=== PATIENT | male | born 1935 | race Caucasian/White ===

== ENCOUNTER 2018-11-02 10:20 | Inpatient (IN) | payer OTHER ==
--- NOTE | 2018-11-02 12:38 | PDOC ---
History of Present Illness - General Chief Complaint: Psychiatric Stated Complaint: Agitated Time Seen by Provider: 11/02/18 12:17 - History of Present Illness Initial Comments: Hx provided with assistance of patients daughter and . 83y/o M hx of alzheimers, Parkinson's disease, BPH and HTN presenting to the ED with approx. a week of increased agitation and combativeness. He has equally had increased urinary frequency and foul smelling urine for the same period of time and ongoing cough for about 3 weeks. per he has cough producing clear sputum, headache and constipation. She denies hematuria, fevers, chills, nausea , vomiting, diarrhea 11/02/18 15:56 Past History - Past Medical History Allergies/Adverse Reactions: Allergies Allergy/AdvReac Type Severity Reaction Status Date / Time Penicillins Allergy Verified 11/02/18 10:29 Home Medications: Ambulatory Orders Cholecalciferol (Vitamin D3) [Vitamin D3] 3,000 unit PO DAILY 11/02/18 Folic Acid 1 mg PO DAILY 11/02/18 Lisinopril/Hydrochlorothiazide [Lisinopril-Hctz 20-12.5 mg Tab] 1 each PO DAILY 11/02/18 Melatonin [Melatin] 3 mg PO DAILY 11/02/18 Memantine HCl [Memantine HCl ER] 21 mg PO DAILY 11/02/18 Nifedipine [Nifedipine ER] 60 mg PO DAILY 11/02/18 Tamsulosin HCl 0.4 mg PO DAILY 11/02/18 COPD: No HTN: Yes Other medical history: alzeihmer's/parkinson's - Surgical History Gastric Stapling: No - Immunization History Immunization Up to Date: No - Suicide/Smoking/Psychosocial Hx Smoking History: Never smoked Have you smoked in the past 12 months: No Information on smoking cessation initiated: No Hx Alcohol Use: No Drug/Substance Use Hx: No *Physical Exam - Vital Signs Last Vital Signs Temp Pulse Resp BP Pulse Ox 98.4 F 81 16 105/54 L 96 11/02/18 10:30 11/02/18 10:30 11/02/18 10:30 11/02/18 10:30 11/02/18 10:30 - Physical Exam General Appearance: Yes: Nourished, Appropriately Dressed. No: Apparent Distress HEENT: positive: Normal Voice. negative: Scleral Icterus (R), Scleral Icterus ( L) Neck: positive: Trachea midline, Supple. negative: Tender Respiratory/Chest: positive: Rhonchi (in lung bases). negative: Chest Tender, Respiratory Distress, Accessory Muscle Use, Labored Respiration Cardiovascular: positive: Regular Rhythm, Regular Rate, S1, S2. negative: JVD Vascular Pulses: Dorsalis-Pedis (R): 2+, Doralis-Pedis (L): 2+ Gastrointestinal/Abdominal: positive: Normal Bowel Sounds, Protuberent. negative: Pulsatile Mass, Guarding, Rebound, Tenderness Musculoskeletal: positive: Normal Inspection. negative: CVA Tenderness Neurologic: positive: Normal Mood/Affect, Other (pill rolling tremor on the right at rest. 5/5 strength in upper extremities. 4 lower extremities. AO x1). negative: Normal Response, Facial Droop ED Treatment Course - LABORATORY CBC & Chemistry Diagram: 11/02/18 13:15 11/02/18 13:15 Medical Decision Making - Medical Decision Making 11/02/18 13:22 cbc, cmp, ua, urine culture, cxr, head ct w/o contrast.EKG 11/02/18 15:05 EKG: normal sinus rhythm, left bundle branch block, abnormal EKG CT head moderate volume loss and ventricular dilatation periventricular chronic microvascular ischemic chagnes no mass lesion/ gross infarct/hemorrhage calvarium intact CXR clear lungs,sclerotic knob, prominent left hilum and normal heart acute chest process ot seen . degenerative changes. correlation recommended 11/02/18 15:55 UA, cbc,cmp unremarkable Dr. Singh contacted about plans for patient. 11/02/18 16:[address] Singh, she sent the patient here for evaluation for his increased agitation and agressive behavior and wants him to be admitted to get a psychiatric evaluation *DC/Admit/Observation/Transfer Diagnosis at time of Disposition: Parkinson disease Dementia Qualifiers: Dementia type: Alzheimer's disease Alzheimer's disease onset: unspecified onset Dementia behavioral disturbance: with behavioral disturbance Qualified Code(s): G30.9 - Alzheimer's disease, unspecified; F02.81 - Dementia in other diseases classified elsewhere with behavioral disturbance - Discharge Dispostion Condition at time of disposition: Stable - Referrals - Patient Instructions - Post Discharge Activity
[2018-11-02 13:22] LABS: BASO % 0.8 % (0-2.0); EOS % 2.1 % (0-4.5); HEMATOCRIT 36.9 % (35.4-49); HEMOGLOBIN 12.4 GM/dL (11.7-16.9); LYMPH % 17.3 % (8-40); MCH 31.5 pg (25.7-33.7); MCHC 33.5 g/dl (32.0-35.9); MEAN CELL VOLUME 93.9 fl (80-96); MEAN PLT VOLUME 8.4 fl (7.5-11.1); MONO % 8.7 % (3.8-10.2); NEUT % 71.1 % (42.8-82.8); PLATELET COUNT 211 K/MM3 (134-434); RBC 3.93 M/mm3 (4.00-5.60); RDW 13.4 % (11.9-15.9); WHITE BLOOD COUNT 7.2 K/mm3 (4.0-10.0)
[2018-11-02 13:50] LABS: ALBUMIN 3.5 g/dl (3.4-5.0); BILIRUBIN,TOTAL 0.6 mg/dL (0.2-1); BLOOD UREA NITROGEN 18.6 mg/dL (7-18); CALCIUM 8.6 mg/dL (8.5-10.1); CREATININE 0.9 mg/dL (0.55-1.3); POTASSIUM 3.9 mmol/L (3.5-5.1); TOT PROT 6.3 g/dl (6.4-8.2)
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
--- NOTE | 2018-11-02 14:28 | EKG ---
Test Reason : Blood Pressure : / mmHG Vent. Rate : 081 BPM Atrial Rate : 081 BPM P-R Int : 136 ms QRS Dur : 174 ms QT Int : 436 ms P-R-T Axes : 029 041 -12 degrees QTc Int : 506 ms NORMAL SINUS RHYTHM LEFT BUNDLE BRANCH BLOCK ABNORMAL ECG NO PREVIOUS ECGS AVAILABLE Confirmed by CLEVELAND SMALLWOOD MD ([id number]) on 11/02/2018 2:28:25 PM Referred By: Confirmed By:CLEVELAND SMALLWOOD MD
[2018-11-02 15:28] LABS: PH,URINE 5.5 (5.0-8.0); URINE APPEARANCE CLEAR; URINE BILIRUBIN NEGATIVE (NEGATIVE); URINE COLOR YELLOW; URINE GLUCOSE (UA) NEGATIVE (NEGATIVE); URINE KETONE NEGATIVE (NEGATIVE); URINE LEUK ESTERASE NEGATIVE (NEGATIVE); URINE NITRITE NEGATIVE (NEGATIVE); URINE PROTEIN NEGATIVE (NEGATIVE); URINE UROBILINOGEN 0.2 mg/dL (0.2-1.0)
[2018-11-02] MEDS ORDERED: ACETAMINOPHEN 325 MG TABLET (FP) PO PRN (16:42)
[2018-11-02] MEDS ORDERED: DIVALPROEX SODIUM 125 MG TABLET E.C. ONE (17:54)
[2018-11-02] MEDS: DIVALPROEX SODIUM 125 MG SPRINKLE CAPS PO SCH (17:55)
[2018-11-02] MEDS ORDERED: OLANZapine 5 MG TABLET PO ONE (17:59)
[2018-11-02] MEDS ORDERED: ACETAMINOPHEN 325 MG TABLET (FP) ONE (19:21)
[2018-11-02] MEDS: MIRTAZAPINE 15 MG TABLET (FP) PO SCH (21:51)
[2018-11-02] MEDS: HALOPERIDOL LACTATE 5 MG/ML IM PRN (21:52)
[2018-11-02] MEDS: MEMANTINE HCL 10 MG TABLET (FP) PO SCH (21:52)
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
[2018-11-03 00:47] VITALS: BMI 26.4
[2018-11-03 07:33] LABS: HEMATOCRIT 42.4 % (35.4-49); HEMOGLOBIN 14.1 GM/dL (11.7-16.9); MCH 31.5 pg (25.7-33.7); MCHC 33.3 g/dl (32.0-35.9); MEAN CELL VOLUME 94.4 fl (80-96); MEAN PLT VOLUME 8.8 fl (7.5-11.1); PLATELET COUNT 227 K/MM3 (134-434); RBC 4.49 M/mm3 (4.00-5.60); RDW 13.6 % (11.9-15.9); WHITE BLOOD COUNT 6.5 K/mm3 (4.0-10.0)
[2018-11-03 08:29] LABS: CALCIUM 8.9 mg/dL (8.5-10.1); CREATININE 0.7 mg/dL (0.55-1.3); MAGNESIUM 2.4 mg/dL (1.8-2.4); POTASSIUM 3.9 mmol/L (3.5-5.1)
[2018-11-03] MEDS ORDERED: MEMANTINE HCL 21 MG PO SCH (10:00)
[2018-11-03] MEDS ORDERED: PATIENT'S OWN MEDICATION (NON-FORMULARY) (Lisinopril/Hydrochlorothiazide [Lisinopril-Hctz PO SCH (10:00)
[2018-11-03] MEDS ORDERED: PT OWN MED DRAWER 7, Y5N ONE ×2 (11:32→21:03)
[2018-11-03] MEDS: CHOLECALCIFEROL (VIT D3) 1,000 UNIT (25 MCG) TABLET PO SCH (11:33)
[2018-11-03] MEDS: HYDROCHLOROTHIAZIDE 12.5 MG CAPSULE (FP) PO SCH (11:34)
[2018-11-03] MEDS: TAMSULOSIN HCL 0.4 MG CAP PO SCH (11:34)
[2018-11-03] MEDS: FOLIC ACID 1 MG TABLET (FP) PO SCH (11:34)
[2018-11-03] MEDS: NIFEdipine E.R 60 MG TABLET (UD) PO SCH (11:34)
[2018-11-03] MEDS: MEMANTINE HCL 10 MG TABLET (FP) PO SCH ×2 (11:34→22:13)
[2018-11-03] MEDS: LISINOPRIL 20 MG TABLET (FP) PO SCH (11:34)
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
[2018-11-03] MEDS: DIVALPROEX SODIUM 125 MG SPRINKLE CAPS PO SCH (22:13)
[2018-11-03] MEDS: MIRTAZAPINE 15 MG TABLET (FP) PO SCH (22:15)
[2018-11-03] MEDS: CARBIDOPA/LEVODOPA 25/100 TABLET (FP) PO SCH (22:22)
--- NOTE | 2018-11-04 00:25 | PN ---
Progress Note (short form) - Note Progress Note: patient seen and examined in room confused / noted tremor right hand ( has had this for yrs ) Vital Signs Period Temp Pulse Resp BP Sys/Rodríguez Pulse Ox Last 24 Hr 98.2 F-98.5 F 80-88 18-20 135-150/73-81 98-98 neck no nodes heart s1/S2 reg lungs clear bilat abd soft non tender ext no edema CBC, BMP 11/03/18 06:39 11/03/18 06:39 Microbiology 11/02/18 15:00 Urine - Urine Clean Catch Urine Culture - Final NO GROWTH OBTAINED Active Medications Acetaminophen (Tylenol -) 650 mg PO Q4H PRN PRN Reason: PAIN LEVEL 1-5 Last Admin: 11/02/18 19:21 Dose: 650 mg Carbidopa/Levodopa (Sinemet 25/100 -) 1 each PO TID [facility] Carbidopa/Levodopa (Sinemet 25/100 -) 0.5 each PO TID TERA Stop: 11/06/18 21:59 Last Admin: 11/03/18 22:22 Dose: 0.5 each Cholecalciferol (Vitamin D3 -) 3,000 unit PO DAILY [facility] Last Admin: 11/03/18 11:33 Dose: 3,000 unit Divalproex Sodium (Depakote Sprinkle Caps -) 125 mg PO BID [facility] Last Admin: 11/03/18 22:13 Dose: 125 mg Folic Acid (Folic Acid -) 1 mg PO DAILY [facility] Last Admin: 11/03/18 11:34 Dose: 1 mg Haloperidol (Haldol Injection (Fast Acting) -) 2 mg IM Q4H PRN PRN Reason: AGITATION Last Admin: 11/02/18 21:52 Dose: 2 mg Hydrochlorothiazide (Hctz -) 12.5 mg PO DAILY [facility] Last Admin: 11/03/18 11:34 Dose: 12.5 mg Lisinopril (Prinivil) 20 mg PO DAILY [facility] Last Admin: 11/03/18 11:34 Dose: 20 mg Memantine (Namenda -) 10 mg PO BID [facility] Last Admin: 11/03/18 22:13 Dose: 10 mg Mirtazapine (Remeron -) 7.5 mg PO HS [facility] Last Admin: 11/03/18 22:15 Dose: 7.5 mg Nifedipine (Procardia Xl -) 60 mg PO DAILY [facility] Last Admin: 11/03/18 11:34 Dose: 60 mg Tamsulosin HCl (Flomax -) 0.4 mg PO DAILY@0830 [facility] Last Admin: 11/03/18 11:34 Dose: 0.4 mg ASSMT/ PLAN # Dementia behavior changes -- paranoid / aggressive outburst depakote mirtazipine q hs # tremors right hand \? Parkinson's ? appreciate neuro input # HTN continue meds will discuss with family the need for STR and may need LTC Problem List - Problems (1) Dementia Code(s): F03.90 - UNSPECIFIED DEMENTIA WITHOUT BEHAVIORAL DISTURBANCE Qualifiers: Dementia type: Alzheimer's disease Alzheimer's disease onset: unspecified onset Dementia behavioral disturbance: with behavioral disturbance Qualified Code(s): G30.9 - Alzheimer's disease, unspecified; F02.81 - Dementia in other diseases classified elsewhere with behavioral disturbance (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
[2018-11-04] MEDS: CARBIDOPA/LEVODOPA 25/100 TABLET (FP) PO SCH ×3 (05:15→22:07)
--- NOTE | 2018-11-04 10:51 | PN ---
Progress Note (short form) - Note Progress Note: patient seen and examined in room confused / noted tremor right hand ( has had this for yrs ) PT reports assist of 2 people difficult to re direct / does not follow commands Vital Signs Period Temp Pulse Resp BP Sys/Rodríguez Pulse Ox Last 24 Hr 98.2 F-98.5 F 80-88 18-20 135-150/73-81 98-98 neck no nodes heart s1/S2 reg lungs clear bilat abd soft non tender ext no edema CBC, BMP 11/03/18 06:39 11/03/18 06:39 Microbiology 11/02/18 15:00 Urine - Urine Clean Catch Urine Culture - Final NO GROWTH OBTAINED Active Medications Acetaminophen (Tylenol -) 650 mg PO Q4H PRN PRN Reason: PAIN LEVEL 1-5 Last Admin: 11/02/18 19:21 Dose: 650 mg Carbidopa/Levodopa (Sinemet 25/100 -) 1 each PO TID [facility] Carbidopa/Levodopa (Sinemet 25/100 -) 0.5 each PO TID [facility] Stop: 11/06/18 21:59 Last Admin: 11/04/18 05:15 Dose: 0.5 each Cholecalciferol (Vitamin D3 -) 3,000 unit PO DAILY [facility] Last Admin: 11/03/18 11:33 Dose: 3,000 unit Divalproex Sodium (Depakote Sprinkle Caps -) 125 mg PO BID [facility] Last Admin: 11/03/18 22:13 Dose: 125 mg Folic Acid (Folic Acid -) 1 mg PO DAILY [facility] Last Admin: 11/03/18 11:34 Dose: 1 mg Haloperidol (Haldol Injection (Fast Acting) -) 2 mg IM Q4H PRN PRN Reason: AGITATION Last Admin: 11/02/18 21:52 Dose: 2 mg Hydrochlorothiazide (Hctz -) 12.5 mg PO DAILY [facility] Last Admin: 11/03/18 11:34 Dose: 12.5 mg Lisinopril (Prinivil) 20 mg PO DAILY [facility] Last Admin: 11/03/18 11:34 Dose: 20 mg Memantine (Namenda -) 10 mg PO BID [facility] Last Admin: 11/03/18 22:13 Dose: 10 mg Mirtazapine (Remeron -) 7.5 mg PO HS [facility] Last Admin: 11/03/18 22:15 Dose: 7.5 mg Nifedipine (Procardia Xl -) 60 mg PO DAILY [facility] Last Admin: 11/03/18 11:34 Dose: 60 mg Tamsulosin HCl (Flomax -) 0.4 mg PO DAILY@0830 [facility] Last Admin: 11/03/18 11:34 Dose: 0.4 mg ASSMT/ PLAN # Dementia behavior changes -- paranoid / aggressive outburst depakote incresed to BID mirtazipine q hs # tremors right hand / parkinson's unsteady gait trial of sinemet appreciate neurology consult # HTN continue meds will need STR and may need LTC family agrees arrangements in progress Problem List - Problems (1) Dementia Code(s): F03.90 - UNSPECIFIED DEMENTIA WITHOUT BEHAVIORAL DISTURBANCE Qualifiers: Dementia type: Alzheimer's disease Alzheimer's disease onset: unspecified onset Dementia behavioral disturbance: with behavioral disturbance Qualified Code(s): G30.9 - Alzheimer's disease, unspecified; F02.81 - Dementia in other diseases classified elsewhere with behavioral disturbance (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
[2018-11-04] MEDS: CHOLECALCIFEROL (VIT D3) 1,000 UNIT (25 MCG) TABLET PO SCH (11:29)
[2018-11-04] MEDS: TAMSULOSIN HCL 0.4 MG CAP PO SCH (11:29)
[2018-11-04] MEDS: NIFEdipine E.R 60 MG TABLET (UD) PO SCH (11:29)
[2018-11-04] MEDS: HYDROCHLOROTHIAZIDE 12.5 MG CAPSULE (FP) PO SCH (11:29)
[2018-11-04] MEDS: LISINOPRIL 20 MG TABLET (FP) PO SCH (11:30)
[2018-11-04] MEDS: MEMANTINE HCL 10 MG TABLET (FP) PO SCH ×2 (11:31→22:06)
[2018-11-04] MEDS: DIVALPROEX SODIUM 125 MG SPRINKLE CAPS PO SCH ×2 (11:31→22:06)
[2018-11-04] MEDS: FOLIC ACID 1 MG TABLET (FP) PO SCH (11:31)
[2018-11-04] MEDS ORDERED: PT OWN MED DRAWER 7, Y5N ONE (20:28)
[2018-11-04] MEDS: MIRTAZAPINE 15 MG TABLET (FP) PO SCH (22:06)
[2018-11-05] MEDS: CARBIDOPA/LEVODOPA 25/100 TABLET (FP) PO SCH ×3 (06:15→21:53)
[2018-11-05 07:46] LABS: BASO % 0.5 % (0-2.0); EOS % 3.9 % (0-4.5); HEMATOCRIT 42.9 % (35.4-49); HEMOGLOBIN 14.5 GM/dL (11.7-16.9); LYMPH % 13.4 % (8-40); MCHC 33.9 g/dl (32.0-35.9); MEAN CELL VOLUME 94.4 fl (80-96); MEAN PLT VOLUME 8.7 fl (7.5-11.1); MONO % 11.8 % (3.8-10.2); NEUT % 70.4 % (42.8-82.8); PLATELET COUNT 212 K/MM3 (134-434); RBC 4.54 M/mm3 (4.00-5.60); RDW 13.7 % (11.9-15.9); WHITE BLOOD COUNT 10.2 K/mm3 (4.0-10.0)
[2018-11-05 08:13] LABS: ALBUMIN 3.4 g/dl (3.4-5.0); BILIRUBIN,TOTAL 0.6 mg/dL (0.2-1); CALCIUM 8.7 mg/dL (8.5-10.1); CREATININE 1.3 mg/dL (0.55-1.3); TOT PROT 6.4 g/dl (6.4-8.2)
--- NOTE | 2018-11-05 09:29 | DS ---
Physical Examination Vital Signs: Vital Signs Temperature 97.8 F 11/05/18 06:30 Pulse Rate 76 11/05/18 06:30 Respiratory Rate 20 11/05/18 06:30 Blood Pressure 144/76 11/05/18 06:30 O2 Sat by Pulse Oximetry (%) 96 11/04/18 21:00 Constitutional: Yes: Well Nourished, No Distress Eyes: Yes: Conjunctiva Clear, EOM Intact HENT: Yes: Atraumatic, Normocephalic Neck: Yes: Supple, Trachea Midline Cardiovascular: Yes: Regular Rate and Rhythm Respiratory: Yes: Regular, CTA Bilaterally Gastrointestinal: Yes: Normal Bowel Sounds, Soft ...Rectal Exam: Yes: Deferred Renal/: Yes: WNL Breast(s): Yes: WNL Musculoskeletal: Yes: WNL Extremities: Yes: WNL Edema: No Peripheral Pulses WNL: Yes Integumentary: Yes: WNL Neurological: Yes: Alert, Confusion, Tremors ...Motor Strength: RUE (Resting tremors) Psychiatric: Yes: Alert Labs: CBC, BMP 11/05/18 06:40 11/05/18 06:40 Discharge Summary Reason For Visit: DEMENTIA PARKINSON DISEASE Current Active Problems BPH associated with nocturia (Acute) Dementia (Acute) Dementia in Alzheimer's disease with early onset with behavioral disturbance ( Acute) HTN (hypertension) (Acute) Parkinson disease (Acute) Hospital Course: 83 y/o male admitted for increased confusion and agitation. PMHx includes Dementia, BPH, HTN and Parkinson's. Unintentional tremors in RT UE present for years. Seen by Neurology. Carbidopa started for Parkinson's. Depakote sprinkles increased to control behavior. Plan To [facility] to [facility] for rehab. LTC may be indicated. Condition: Stable - Instructions Diet, Activity, Other Instructions: 2 gm Na diet Disposition: [facility] - Home Medications Comprehensive Discharge Medication List: Ambulatory Orders Cholecalciferol (Vitamin D3) [Vitamin D3] 3,000 unit PO DAILY 11/02/18 Folic Acid 1 mg PO DAILY 11/02/18 Lisinopril/Hydrochlorothiazide [Lisinopril-Hctz 20-12.5 mg Tab] 1 each PO DAILY 11/02/18 Melatonin [Melatin] 3 mg PO DAILY 11/02/18 Memantine HCl [Memantine HCl ER] 21 mg PO DAILY 11/02/18 Nifedipine [Nifedipine ER] 60 mg PO DAILY 11/02/18 Tamsulosin HCl 0.4 mg PO DAILY 11/02/18
[2018-11-05] MEDS: LISINOPRIL 20 MG TABLET (FP) PO SCH (10:11)
[2018-11-05] MEDS: HYDROCHLOROTHIAZIDE 12.5 MG CAPSULE (FP) PO SCH (10:11)
[2018-11-05] MEDS: NIFEdipine E.R 60 MG TABLET (UD) PO SCH (10:11)
[2018-11-05] MEDS: FOLIC ACID 1 MG TABLET (FP) PO SCH (10:11)
[2018-11-05] MEDS: CHOLECALCIFEROL (VIT D3) 1,000 UNIT (25 MCG) TABLET PO SCH (10:11)
[2018-11-05] MEDS: TAMSULOSIN HCL 0.4 MG CAP PO SCH (10:11)
[2018-11-05] MEDS: DIVALPROEX SODIUM 125 MG SPRINKLE CAPS PO SCH ×2 (10:12→21:51)
[2018-11-05] MEDS: MEMANTINE HCL 10 MG TABLET (FP) PO SCH ×2 (10:13→21:53)
[2018-11-05] MEDS: MIRTAZAPINE 15 MG TABLET (FP) PO SCH (21:51)
[2018-11-06] MEDS: CARBIDOPA/LEVODOPA 25/100 TABLET (FP) PO SCH ×4 (06:38→21:46)
[2018-11-06] MEDS: DIVALPROEX SODIUM 125 MG SPRINKLE CAPS PO SCH ×3 (10:19→21:46)
[2018-11-06] MEDS ORDERED: PT OWN MED DRAWER 7, Y5N ONE (10:19)
[2018-11-06] MEDS: TAMSULOSIN HCL 0.4 MG CAP PO SCH (11:19)
[2018-11-06] MEDS: MEMANTINE HCL 10 MG TABLET (FP) PO SCH ×2 (11:20→21:45)
[2018-11-06] MEDS: CHOLECALCIFEROL (VIT D3) 1,000 UNIT (25 MCG) TABLET PO SCH (11:20)
[2018-11-06] MEDS: FOLIC ACID 1 MG TABLET (FP) PO SCH (11:20)
[2018-11-06] MEDS: NIFEdipine E.R 60 MG TABLET (UD) PO SCH (11:20)
[2018-11-06] MEDS: HYDROCHLOROTHIAZIDE 12.5 MG CAPSULE (FP) PO SCH (11:21)
[2018-11-06] MEDS: LISINOPRIL 20 MG TABLET (FP) PO SCH (11:21)
--- NOTE | 2018-11-06 13:24 | PN ---
Progress Note (short form) - Note Progress Note: 83 y/o male found lying in bed. Appears comfortable. No c/o pain or discomfort. Vital Signs Period Temp Pulse Resp BP Sys/Rodríguez Pulse Ox Last 24 Hr 98.5 F-98.7 F 69-85 18-20 115-154/49-93 96-96 CBC, BMP 11/05/18 06:40 11/05/18 06:40 HEENT- NL Neck-supple Lungs- CTAb Heart- S1/S2 Abd- soft, nt Ext- No LE edema Active Medications Acetaminophen (Tylenol -) 650 mg PO Q4H PRN PRN Reason: PAIN LEVEL 1-5 Last Admin: 11/02/18 19:21 Dose: 650 mg Carbidopa/Levodopa (Sinemet 25/100 -) 1 each PO TID [facility] Carbidopa/Levodopa (Sinemet 25/100 -) 0.5 each PO TID [facility] Stop: 11/06/18 21:59 Last Admin: 11/06/18 06:47 Dose: Not Given Cholecalciferol (Vitamin D3 -) 3,000 unit PO DAILY [facility] Last Admin: 11/06/18 11:20 Dose: 3,000 unit Divalproex Sodium (Depakote Sprinkle Caps -) 125 mg PO BID [facility] Last Admin: 11/06/18 10:19 Dose: 125 mg Folic Acid (Folic Acid -) 1 mg PO DAILY [facility] Last Admin: 11/06/18 11:20 Dose: 1 mg Haloperidol (Haldol Injection (Fast Acting) -) 2 mg IM Q4H PRN PRN Reason: AGITATION Last Admin: 11/02/18 21:52 Dose: 2 mg Hydrochlorothiazide (Hctz -) 12.5 mg PO DAILY [facility] Last Admin: 11/06/18 11:21 Dose: 12.5 mg Lisinopril (Prinivil) 20 mg PO DAILY [facility] Last Admin: 11/06/18 11:21 Dose: 20 mg Memantine (Namenda -) 10 mg PO BID [facility] Last Admin: 11/06/18 11:20 Dose: 10 mg Mirtazapine (Remeron -) 7.5 mg PO HS [facility] Last Admin: 11/05/18 21:51 Dose: 7.5 mg Nifedipine (Procardia Xl -) 60 mg PO DAILY [facility] Last Admin: 11/06/18 11:20 Dose: 60 mg Tamsulosin HCl (Flomax -) 0.4 mg PO DAILY@0830 [facility] Last Admin: 11/06/18 11:19 Dose: 0.4 mg ASSMT/ PLAN # Dementia behavior stable cont depakote and mirtazipine # tremors right hand / parkinson's unsteady gait Cont sinemet # HTN continue meds # BPH Flomax arrangements in progress for STR family aware Problem List - Problems (1) Dementia Code(s): F03.90 - UNSPECIFIED DEMENTIA WITHOUT BEHAVIORAL DISTURBANCE Qualifiers: Dementia type: Alzheimer's disease Alzheimer's disease onset: unspecified onset Dementia behavioral disturbance: with behavioral disturbance Qualified Code(s): G30.9 - Alzheimer's disease, unspecified; F02.81 - Dementia in other diseases classified elsewhere with behavioral disturbance (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
[2018-11-06] MEDS: MIRTAZAPINE 15 MG TABLET (FP) PO SCH (21:45)
[2018-11-07] MEDS: CARBIDOPA/LEVODOPA 25/100 TABLET (FP) PO SCH ×3 (06:13→21:29)
[2018-11-07 06:38] LABS: BASO % 0.5 % (0-2.0); EOS % 4.3 % (0-4.5); HEMATOCRIT 41.3 % (35.4-49); MEAN PLT VOLUME 8.8 fl (7.5-11.1); MONO % 10.8 % (3.8-10.2); NEUT % 69.4 % (42.8-82.8); PLATELET COUNT 215 K/MM3 (134-434); RBC 4.39 M/mm3 (4.00-5.60); RDW 13.4 % (11.9-15.9); WHITE BLOOD COUNT 9.4 K/mm3 (4.0-10.0)
[2018-11-07 07:01] LABS: BLOOD UREA NITROGEN 44.9 mg/dL (7-18); CALCIUM 9.2 mg/dL (8.5-10.1); CREATININE 1.2 mg/dL (0.55-1.3); POTASSIUM 4.2 mmol/L (3.5-5.1)
[2018-11-07] MEDS: CHOLECALCIFEROL (VIT D3) 1,000 UNIT (25 MCG) TABLET PO SCH (09:29)
[2018-11-07] MEDS: FOLIC ACID 1 MG TABLET (FP) PO SCH (09:29)
[2018-11-07] MEDS: TAMSULOSIN HCL 0.4 MG CAP PO SCH (09:29)
[2018-11-07] MEDS: LISINOPRIL 20 MG TABLET (FP) PO SCH (09:29)
[2018-11-07] MEDS: MEMANTINE HCL 10 MG TABLET (FP) PO SCH ×2 (09:30→21:29)
[2018-11-07] MEDS: NIFEdipine E.R 60 MG TABLET (UD) PO SCH (09:30)
[2018-11-07] MEDS: HYDROCHLOROTHIAZIDE 12.5 MG CAPSULE (FP) PO SCH (09:30)
[2018-11-07] MEDS: DIVALPROEX SODIUM 125 MG SPRINKLE CAPS PO SCH ×2 (09:30→21:29)
--- NOTE | 2018-11-07 09:58 | PN ---
Progress Note (short form) - Note Progress Note: patient seen and examined in room confused / drowsy PT reports assist of 2 people difficult to re direct / does not follow commands Vital Signs Period Temp Pulse Resp BP Sys/Rodríguez Pulse Ox Last 24 Hr 98.2 F-98.5 F 80-88 18-20 135-150/73-81 98-98 neck no nodes heart s1/S2 reg lungs clear bilat abd soft non tender ext no edema CBC, BMP 11/07/18 05:30 11/07/18 05:30 CBC, BMP 11/03/18 06:39 11/03/18 06:39 Microbiology 11/02/18 15:00 Urine - Urine Clean Catch Urine Culture - Final NO GROWTH OBTAINED Active Medications Acetaminophen (Tylenol -) 650 mg PO Q4H PRN PRN Reason: PAIN LEVEL 1-5 Last Admin: 11/02/18 19:21 Dose: 650 mg Carbidopa/Levodopa (Sinemet 25/100 -) 1 each PO TID [facility] Last Admin: 11/07/18 06:13 Dose: 1 each Cholecalciferol (Vitamin D3 -) 3,000 unit PO DAILY [facility] Last Admin: 11/07/18 09:29 Dose: 3,000 unit Divalproex Sodium (Depakote Sprinkle Caps -) 125 mg PO BID [facility] Last Admin: 11/07/18 09:30 Dose: 125 mg Folic Acid (Folic Acid -) 1 mg PO DAILY [facility] Last Admin: 11/07/18 09:29 Dose: 1 mg Haloperidol (Haldol Injection (Fast Acting) -) 2 mg IM Q4H PRN PRN Reason: AGITATION Last Admin: 11/02/18 21:52 Dose: 2 mg Hydrochlorothiazide (Hctz -) 12.5 mg PO DAILY [facility] Last Admin: 11/07/18 09:30 Dose: 12.5 mg Lisinopril (Prinivil) 20 mg PO DAILY [facility] Last Admin: 11/07/18 09:29 Dose: 20 mg Memantine (Namenda -) 10 mg PO BID [facility] Last Admin: 11/07/18 09:30 Dose: 10 mg Mirtazapine (Remeron -) 7.5 mg PO HS [facility] Last Admin: 11/06/18 21:45 Dose: 7.5 mg Nifedipine (Procardia Xl -) 60 mg PO DAILY [facility] Last Admin: 11/07/18 09:30 Dose: 60 mg Tamsulosin HCl (Flomax -) 0.4 mg PO DAILY@0830 [facility] Last Admin: 11/07/18 09:29 Dose: 0.4 mg ASSMT/ PLAN # Dementia behavior changes -- paranoid / aggressive outburst depakote increased to BID behavior improvement - however drowsier mirtazipine q hs # tremors right hand / parkinson's unsteady gait trial of sinemet appreciate neurology consult # HTN continue meds have discussed extensively with family POC will need STR -they are agreeable to [facility] and willl proceed with arrangements Authorization in progress and they understand may need LTC - family agrees --- arrangements in progress Problem List - Problems (1) Dementia Code(s): F03.90 - UNSPECIFIED DEMENTIA WITHOUT BEHAVIORAL DISTURBANCE Qualifiers: Dementia type: Alzheimer's disease Alzheimer's disease onset: unspecified onset Dementia behavioral disturbance: with behavioral disturbance Qualified Code(s): G30.9 - Alzheimer's disease, unspecified; F02.81 - Dementia in other diseases classified elsewhere with behavioral disturbance (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
[2018-11-07] MEDS: HALOPERIDOL LACTATE 5 MG/ML IM PRN (12:11)
[2018-11-07] MEDS: MIRTAZAPINE 15 MG TABLET (FP) PO SCH (21:29)
[2018-11-08] MEDS: CARBIDOPA/LEVODOPA 25/100 TABLET (FP) PO SCH ×3 (06:04→22:11)
[2018-11-08 08:06] LABS: CALCIUM 9.1 mg/dL (8.5-10.1); POTASSIUM 3.8 mmol/L (3.5-5.1)
[2018-11-08] MEDS ORDERED: PT OWN MED DRAWER 7, Y5N ONE ×2 (08:19→14:12)
[2018-11-08] MEDS: TAMSULOSIN HCL 0.4 MG CAP PO SCH (09:24)
[2018-11-08] MEDS: HYDROCHLOROTHIAZIDE 12.5 MG CAPSULE (FP) PO SCH (09:24)
[2018-11-08] MEDS: LISINOPRIL 20 MG TABLET (FP) PO SCH (09:24)
[2018-11-08] MEDS: CHOLECALCIFEROL (VIT D3) 1,000 UNIT (25 MCG) TABLET PO SCH (09:24)
[2018-11-08] MEDS: NIFEdipine E.R 60 MG TABLET (UD) PO SCH (09:24)
[2018-11-08] MEDS: FOLIC ACID 1 MG TABLET (FP) PO SCH (09:24)
[2018-11-08] MEDS: DIVALPROEX SODIUM 125 MG SPRINKLE CAPS PO SCH ×2 (09:25→22:09)
[2018-11-08] MEDS: MEMANTINE HCL 10 MG TABLET (FP) PO SCH ×2 (09:26→22:10)
--- NOTE | 2018-11-08 16:44 | PN ---
Progress Note (short form) - Note Progress Note: patient seen and examined in room confused / alert / ans questions but not appropriately wants " to go to the kitchen " difficult to re direct / does not follow commands Vital Signs Period Temp Pulse Resp BP Sys/Rodríguez Pulse Ox Last 24 Hr 97.6 F-98.6 F 68-85 20-20 118-138/57-78 96 moist cough neck no nodes heart s1/S2 reg lungs clear bilat abd soft non tender ext no edema CBC, BMP 11/07/18 05:30 11/07/18 05:30 CBC, BMP 11/03/18 06:39 11/03/18 06:39 Microbiology 11/02/18 15:00 Urine - Urine Clean Catch Urine Culture - Final NO GROWTH OBTAINED Active Medications Acetaminophen (Tylenol -) 650 mg PO Q4H PRN PRN Reason: PAIN LEVEL 1-5 Last Admin: 11/02/18 19:21 Dose: 650 mg Carbidopa/Levodopa (Sinemet 25/100 -) 1 each PO TID [facility] Last Admin: 11/08/18 13:32 Dose: 1 each Cholecalciferol (Vitamin D3 -) 3,000 unit PO DAILY [facility] Last Admin: 11/08/18 09:24 Dose: 3,000 unit Divalproex Sodium (Depakote Sprinkle Caps -) 125 mg PO BID [facility] Last Admin: 11/08/18 09:25 Dose: 125 mg Folic Acid (Folic Acid -) 1 mg PO DAILY [facility] Last Admin: 11/08/18 09:24 Dose: 1 mg Haloperidol (Haldol Injection (Fast Acting) -) 2 mg IM Q4H PRN PRN Reason: AGITATION Last Admin: 11/07/18 12:11 Dose: 2 mg Hydrochlorothiazide (Hctz -) 12.5 mg PO DAILY [facility] Last Admin: 11/08/18 09:24 Dose: 12.5 mg Lisinopril (Prinivil) 20 mg PO DAILY [facility] Last Admin: 11/08/18 09:24 Dose: 20 mg Memantine (Namenda -) 10 mg PO BID [facility] Last Admin: 11/08/18 09:26 Dose: 10 mg Mirtazapine (Remeron -) 7.5 mg PO HS [facility] Last Admin: 11/07/18 21:29 Dose: 7.5 mg Nifedipine (Procardia Xl -) 60 mg PO DAILY [facility] Last Admin: 11/08/18 09:24 Dose: 60 mg Tamsulosin HCl (Flomax -) 0.4 mg PO DAILY@0830 [facility] Last Admin: 11/08/18 09:24 Dose: 0.4 mg ASSMT/ PLAN # Dementia behavior changes -- paranoid / aggressive outburst depakote increased to BID behavior improvement - however drowsier mirtazipine q hs has required Haldol over the weekend for outburst # tremors right hand / parkinson's unsteady gait trial of sinemet appreciate neurology consult # HTN continue meds have discussed extensively with family POC will need STR -they are agreeable to [facility] and willl proceed with arrangements Authorization in progress and they understand may need LTC - family agrees --- arrangements in progress Problem List - Problems (1) Dementia Code(s): F03.90 - UNSPECIFIED DEMENTIA WITHOUT BEHAVIORAL DISTURBANCE Qualifiers: Dementia type: Alzheimer's disease Alzheimer's disease onset: unspecified onset Dementia behavioral disturbance: with behavioral disturbance Qualified Code(s): G30.9 - Alzheimer's disease, unspecified; F02.81 - Dementia in other diseases classified elsewhere with behavioral disturbance (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
[2018-11-08] MEDS: MIRTAZAPINE 15 MG TABLET (FP) PO SCH (22:11)
[2018-11-09] MEDS: CARBIDOPA/LEVODOPA 25/100 TABLET (FP) PO SCH ×3 (05:35→22:22)
[2018-11-09] MEDS ORDERED: PT OWN MED DRAWER 7, Y5N ONE ×3 (06:34→11:19)
[2018-11-09] MEDS: MEMANTINE HCL 10 MG TABLET (FP) PO SCH ×2 (11:23→22:21)
[2018-11-09] MEDS: CHOLECALCIFEROL (VIT D3) 1,000 UNIT (25 MCG) TABLET PO SCH (11:23)
[2018-11-09] MEDS: NIFEdipine E.R 60 MG TABLET (UD) PO SCH (11:24)
[2018-11-09] MEDS: DIVALPROEX SODIUM 125 MG SPRINKLE CAPS PO SCH ×2 (11:24→22:21)
[2018-11-09] MEDS: LISINOPRIL 20 MG TABLET (FP) PO SCH (11:24)
[2018-11-09] MEDS: TAMSULOSIN HCL 0.4 MG CAP PO SCH (11:24)
[2018-11-09] MEDS: FOLIC ACID 1 MG TABLET (FP) PO SCH (11:24)
[2018-11-09] MEDS: HYDROCHLOROTHIAZIDE 12.5 MG CAPSULE (FP) PO SCH (11:24)
--- NOTE | 2018-11-09 14:06 | PN ---
Progress Note (short form) - Note Progress Note: patient seen and examined in room confused / alert / ans questions but not appropriately awaiting auth from insurance difficult to re direct / does not follow commands Vital Signs Period Temp Pulse Resp BP Sys/Rodríguez Pulse Ox Last 24 Hr 97.6 F-98.6 F 68-85 20-20 118-138/57-78 96 withdrawn but interacts moist cough follow directions intermittently neck no nodes heart s1/S2 reg lungs clear bilat abd soft non tender ext no edema 11/07/18 05:30 11/07/18 05:30 CBC, BMP 11/03/18 06:39 11/03/18 06:39 Microbiology 11/02/18 15:00 Urine - Urine Clean Catch Urine Culture - Final NO GROWTH OBTAINED Active Medications Acetaminophen (Tylenol -) 650 mg PO Q4H PRN PRN Reason: PAIN LEVEL 1-5 Last Admin: 11/02/18 19:21 Dose: 650 mg Carbidopa/Levodopa (Sinemet 25/100 -) 1 each PO TID [facility] Last Admin: 11/09/18 14:36 Dose: 1 each Cholecalciferol (Vitamin D3 -) 3,000 unit PO DAILY [facility] Last Admin: 11/09/18 11:23 Dose: 3,000 unit Divalproex Sodium (Depakote Sprinkle Caps -) 125 mg PO BID [facility] Last Admin: 11/09/18 11:24 Dose: 125 mg Folic Acid (Folic Acid -) 1 mg PO DAILY [facility] Last Admin: 11/09/18 11:24 Dose: 1 mg Haloperidol (Haldol Injection (Fast Acting) -) 2 mg IM Q4H PRN PRN Reason: AGITATION Last Admin: 11/07/18 12:11 Dose: 2 mg Hydrochlorothiazide (Hctz -) 12.5 mg PO DAILY [facility] Last Admin: 11/09/18 11:24 Dose: 12.5 mg Lisinopril (Prinivil) 20 mg PO DAILY [facility] Last Admin: 11/09/18 11:24 Dose: 20 mg Memantine (Namenda -) 10 mg PO BID [facility] Last Admin: 11/09/18 11:23 Dose: 10 mg Mirtazapine (Remeron -) 7.5 mg PO HS [facility] Last Admin: 11/08/18 22:11 Dose: 7.5 mg Nifedipine (Procardia Xl -) 60 mg PO DAILY [facility] Last Admin: 11/09/18 11:24 Dose: 60 mg Tamsulosin HCl (Flomax -) 0.4 mg PO DAILY@0830 [facility] Last Admin: 11/09/18 11:24 Dose: 0.4 mg ASSMT/ PLAN # Dementia behavior changes -- paranoid / aggressive outburst depakote increased to BID behavior improvement - however drowsier mirtazipine q hs has required Haldol over the weekend for outburst # tremors right hand / parkinson's unsteady gait trial of sinemet appreciate neurology consult # HTN continue meds have discussed extensively with family POC will need STR -they are agreeable to [facility] and willl proceed with arrangements Authorization in progress and they understand may need LTC - family agrees --- arrangements in progress Problem List - Problems (1) Dementia Code(s): F03.90 - UNSPECIFIED DEMENTIA WITHOUT BEHAVIORAL DISTURBANCE Qualifiers: Dementia type: Alzheimer's disease Alzheimer's disease onset: unspecified onset Dementia behavioral disturbance: with behavioral disturbance Qualified Code(s): G30.9 - Alzheimer's disease, unspecified; F02.81 - Dementia in other diseases classified elsewhere with behavioral disturbance (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
[2018-11-09] MEDS: MIRTAZAPINE 15 MG TABLET (FP) PO SCH (22:22)
[2018-11-10] MEDS: CARBIDOPA/LEVODOPA 25/100 TABLET (FP) PO SCH ×3 (06:26→21:57)
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
[2018-11-10] MEDS: HYDROCHLOROTHIAZIDE 12.5 MG CAPSULE (FP) PO SCH (11:26)
[2018-11-10] MEDS: MEMANTINE HCL 10 MG TABLET (FP) PO SCH ×2 (11:26→21:57)
[2018-11-10] MEDS: LISINOPRIL 20 MG TABLET (FP) PO SCH (11:26)
[2018-11-10] MEDS: TAMSULOSIN HCL 0.4 MG CAP PO SCH (11:26)
[2018-11-10] MEDS: NIFEdipine E.R 60 MG TABLET (UD) PO SCH (11:26)
[2018-11-10] MEDS: DIVALPROEX SODIUM 125 MG SPRINKLE CAPS PO SCH ×2 (11:26→21:57)
[2018-11-10] MEDS: CHOLECALCIFEROL (VIT D3) 1,000 UNIT (25 MCG) TABLET PO SCH (11:27)
[2018-11-10] MEDS: FOLIC ACID 1 MG TABLET (FP) PO SCH (11:27)
[2018-11-10] MEDS: MIRTAZAPINE 15 MG TABLET (FP) PO SCH (21:57)
[2018-11-11] MEDS: CARBIDOPA/LEVODOPA 25/100 TABLET (FP) PO SCH ×2 (06:08→14:59)
[2018-11-11 08:16] LABS: BLOOD UREA NITROGEN 53.5 mg/dL (7-18); CALCIUM 9.3 mg/dL (8.5-10.1); CREATININE 1.5 mg/dL (0.55-1.3); POTASSIUM 3.8 mmol/L (3.5-5.1)
[2018-11-11 08:21] LABS: BASO % 0.4 % (0-2.0); EOS % 2.9 % (0-4.5); HEMATOCRIT 41.1 % (35.4-49); HEMOGLOBIN 13.8 GM/dL (11.7-16.9); LYMPH % 11.8 % (8-40); MCH 31.7 pg (25.7-33.7); MCHC 33.6 g/dl (32.0-35.9); MEAN CELL VOLUME 94.1 fl (80-96); MEAN PLT VOLUME 9.1 fl (7.5-11.1); MONO % 10.2 % (3.8-10.2); NEUT % 74.7 % (42.8-82.8); PLATELET COUNT 230 K/MM3 (134-434); RBC 4.37 M/mm3 (4.00-5.60); RDW 13.2 % (11.9-15.9)
[2018-11-11] MEDS: LISINOPRIL 20 MG TABLET (FP) PO SCH (10:06)
[2018-11-11] MEDS: CHOLECALCIFEROL (VIT D3) 1,000 UNIT (25 MCG) TABLET PO SCH (10:06)
[2018-11-11] MEDS: DIVALPROEX SODIUM 125 MG SPRINKLE CAPS PO SCH (10:06)
[2018-11-11] MEDS: MEMANTINE HCL 10 MG TABLET (FP) PO SCH (10:06)
[2018-11-11] MEDS: NIFEdipine E.R 60 MG TABLET (UD) PO SCH (10:06)
[2018-11-11] MEDS: FOLIC ACID 1 MG TABLET (FP) PO SCH (10:06)
[2018-11-11] MEDS: HYDROCHLOROTHIAZIDE 12.5 MG CAPSULE (FP) PO SCH (10:06)
[2018-11-11] MEDS: TAMSULOSIN HCL 0.4 MG CAP PO SCH (10:06)
--- NOTE | 2018-11-11 11:48 | PN ---
Progress Note (short form) - Note Progress Note: patient seen and examined in room confused / alert / PT at bedsode patient able to follow commands assists with getting out of bed ambulates with walker however needs directing awaiting auth from insurance Vital Signs Period Temp Pulse Resp BP Sys/Rodríguez Pulse Ox Last 24 Hr 97.6 F-98.6 F 68-85 20-20 118-138/57-78 96 interacts follow directions - ambulating in hallway neck no nodes heart s1/S2 reg lungs clear bilat abd soft non tender ext no edema CBC, BMP 11/11/18 06:25 11/11/18 06:25 11/07/18 05:30 11/07/18 05:30 Microbiology 11/02/18 15:00 Urine - Urine Clean Catch Urine Culture - Final NO GROWTH OBTAINED Active Medications Acetaminophen (Tylenol -) 650 mg PO Q4H PRN PRN Reason: PAIN LEVEL 1-5 Last Admin: 11/02/18 19:21 Dose: 650 mg Carbidopa/Levodopa (Sinemet 25/100 -) 1 each PO TID [facility] Last Admin: 11/11/18 06:08 Dose: Not Given Cholecalciferol (Vitamin D3 -) 3,000 unit PO DAILY [facility] Last Admin: 11/11/18 10:06 Dose: 3,000 unit Divalproex Sodium (Depakote Sprinkle Caps -) 125 mg PO BID [facility] Last Admin: 11/11/18 10:06 Dose: 125 mg Folic Acid (Folic Acid -) 1 mg PO DAILY [facility] Last Admin: 11/11/18 10:06 Dose: 1 mg Haloperidol (Haldol Injection (Fast Acting) -) 2 mg IM Q4H PRN PRN Reason: AGITATION Last Admin: 11/07/18 12:11 Dose: 2 mg Hydrochlorothiazide (Hctz -) 12.5 mg PO DAILY [facility] Last Admin: 11/11/18 10:06 Dose: 12.5 mg Lisinopril (Prinivil) 20 mg PO DAILY [facility] Last Admin: 11/11/18 10:06 Dose: 20 mg Memantine (Namenda -) 10 mg PO BID [facility] Last Admin: 11/11/18 10:06 Dose: 10 mg Mirtazapine (Remeron -) 7.5 mg PO HS [facility] Last Admin: 11/10/18 21:57 Dose: Not Given Nifedipine (Procardia Xl -) 60 mg PO DAILY [facility] Last Admin: 11/11/18 10:06 Dose: 60 mg Tamsulosin HCl (Flomax -) 0.4 mg PO DAILY@0830 [facility] Last Admin: 11/11/18 10:06 Dose: 0.4 mg ASSMT/ PLAN # Dementia behavior changes -- paranoid / aggressive outburst now controlled depakote increased to BID behavior improvement -tolerating medication mirtazipine q hs # tremors right hand / parkinson's unsteady gait on sinemet improved gait appreciate neurology consult # HTN continue meds have discussed extensively with family POC will need STR -they are agreeable to [facility] and willl proceed with arrangements Authorization in progress family considering LTC at home after STR Problem List - Problems (1) Dementia Code(s): F03.90 - UNSPECIFIED DEMENTIA WITHOUT BEHAVIORAL DISTURBANCE Qualifiers: Dementia type: Alzheimer's disease Alzheimer's disease onset: unspecified onset Dementia behavioral disturbance: with behavioral disturbance Qualified Code(s): G30.9 - Alzheimer's disease, unspecified; F02.81 - Dementia in other diseases classified elsewhere with behavioral disturbance (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
[2018-11-11 12:07] VITALS: BP 149/75; PULSE 80; TEMP 97.6
== END 2018-11-11 15:32 | DRG 57 ==
LOC: JER 10:20 → JERBED 16:10 → J8W 20:03
PROVIDERS: ADMIT Family Medicine; ATTEND Family Medicine
DX: G30.0 Alzheimer's disease with early onset (principal); F02.81 Dementia in other diseases classified elsewhere, unspecified severity, with behavioral disturbance; G20 Parkinson's disease; N40.1 Benign prostatic hyperplasia with lower urinary tract symptoms; I10 Essential (primary) hypertension
CPT/HCPCS: 36415; 70450-TC; 71045-TC-FY; 80048; 80053; 81003; 82607; 83735; 84443; 84484; 85025; 85027; 87086; 93005; 93010; 97116-GP; 97162-GP; 99284-25

== ENCOUNTER 2018-11-28 13:29 | Inpatient (IN) | payer OTHER ==
--- NOTE | 2018-11-28 14:06 | PDOC ---
History of Present Illness - General Stated Complaint: ALTERED MENTAL STATUS Time Seen by Provider: 11/28/18 13:52 - History of Present Illness Initial Comments: 11/28/18 14:07 83y/o M hx of alzheimers, Parkinson's disease, BPH and HTN presenting to the ED with hypotension and recent history of urosepsis on day of 4 of levaquin. The patient's daughter reports that he was found to be hypotensive to 60/40s. The patient has nifedipine, amlodipine, lisinopril for bp management ROS - limited 2/2 dementia PE GENERAL: Awake, alert, and fully oriented, in no acute distress HEAD: No signs of trauma, normocephalic, atraumatic EYES:EOMI, sclera anicteric, conjunctiva clear ENT: oropharynx clear without exudates. Moist mucosa NECK: Normal ROM, supple LUNGS: No distress, speaks full sentences, clear to auscultation bilaterally HEART: Regular rate and rhythm, normal S1 and S2, no murmurs, rubs or gallops, peripheral pulses normal and equal bilaterally. ABDOMEN: Soft, nontender No guarding, no rebound. No masses EXTREMITIES : Normal inspection, Normal range of motion, no edema. No clubbing or cyanosis. NEUROLOGICAL: Cranial nerves II through XII grossly intact. Normal speech, normal gait, no focal sensorimotor deficits SKIN: Warm, Dry, normal turgor, no rashes or lesions noted MDM DDX including but not limited to: urospesis vs pna r/o skin source W/U: - sepsis set ED Course: fluids given leukocytosis, lactic acidosis ua 0wnl however on day 4 of levaquin blood culture and urine culture sent already Case discussed with Dr. Singh who recommends empiric vancomycin and admission / Will come see patient shortly Caitlyn Marshall, PGY2 Emergency Medicine Past History - Past Medical History Allergies/Adverse Reactions: Allergies Allergy/AdvReac Type Severity Reaction Status Date / Time Penicillins Allergy Verified 11/02/18 10:29 Home Medications: Ambulatory Orders Acetaminophen [Tylenol .Regular Strength -] 650 mg PO Q4H PRN #120 tablet Cholecalciferol (Vitamin D3) [Vitamin D3] 3,000 unit PO DAILY #30 tablet Folic Acid 1 mg PO DAILY 30 Days #30 tablet 11/05/18 Lisinopril [Prinivil] 20 mg PO DAILY 30 Days #30 tablet 11/05/18 Melatonin [Melatin] 3 mg PO DAILY #30 tablet 11/05/18 Nifedipine [Nifedipine ER] 60 mg PO DAILY 30 Days #30 tab.er.24 11/05/18 Tamsulosin HCl 0.4 mg PO DAILY 30 Days #30 capsule 11/05/18 Bacitracin 5,000,000 unit [facility] DAILY 11/28/18 Memantine HCl [Memantine HCl ER] 21 mg PO DAILY 11/28/18 levoFLOXacin [Levaquin] 750 mg PO DAILY 11/28/18 COPD: No HTN: Yes - Surgical History Gastric Stapling: No - Immunization History Immunization Up to Date: No - Psycho Social/Smoking Cessation Hx Smoking History: Never smoked Have you smoked in the past 12 months: No Hx Alcohol Use: No Drug/Substance Use Hx: No ED Treatment Course - LABORATORY CBC & Chemistry Diagram: 11/28/18 14:35 11/28/18 14:35 Discharge - Discharge Information Problems reviewed: Yes Clinical Impression/Diagnosis: Sepsis Condition: Stable - Admission Yes - Follow up/Referral Referrals: Sherry Singh MD [Primary Care Provider] - - Patient Discharge Instructions - Post Discharge Activity
[2018-11-28] MEDS ORDERED: SODIUM CHLORIDE 1,000 ML IV SCH ×2 (14:30→16:15)
[2018-11-28 14:52] LABS: VENOUS PC02 40.5 mmHg (38-52); VENOUS PH 7.41 (7.31-7.41)
[2018-11-28 14:53] LABS: VENOUS PO2 < 49 mmHg (28-48)
[2018-11-28 14:56] LABS: BASO % 0.4 % (0-2.0); EOS % 0.4 % (0-4.5); HEMATOCRIT 41.8 % (35.4-49); HEMOGLOBIN 13.8 GM/dL (11.7-16.9); LYMPH % 5.2 % (8-40); MEAN CELL VOLUME 93.8 fl (80-96); MEAN PLT VOLUME 8.7 fl (7.5-11.1); MONO % 9.6 % (3.8-10.2); NEUT % 84.4 % (42.8-82.8); PLATELET COUNT 224 K/MM3 (134-434); RBC 4.45 M/mm3 (4.00-5.60); WHITE BLOOD COUNT 19.3 K/mm3 (4.0-10.0)
[2018-11-28 15:11] LABS: INR 1.14 (0.83-1.09); PROTHROMBIN TIME (PATIENT) 13.5 SEC (9.7-13.0)
[2018-11-28 15:13] LABS: ACTIVATED PTT 27.8 SECONDS (25.2-36.5)
[2018-11-28 15:27] LABS: ALBUMIN 2.9 g/dl (3.4-5.0); BLOOD UREA NITROGEN 20.4 mg/dL (7-18); CALCIUM 8.7 mg/dL (8.5-10.1); CREATININE 1.5 mg/dL (0.55-1.3); POTASSIUM 4.3 mmol/L (3.5-5.1); TOT PROT 6.3 g/dl (6.4-8.2)
[2018-11-28] MEDS ORDERED: SODIUM CHLORIDE 1,000 ML IV ONE (15:37)
[2018-11-28 15:44] LABS: EPI CELLS 1.4 /HPF (0-5/HPF); HYALINE CASTS 3 /lpf (0-8); PH,URINE 6.5 (5.0-8.0); URINE APPEARANCE CLEAR; URINE BACTERIA 1.2 /hpf (NEGATIVE); URINE BILIRUBIN NEGATIVE (NEGATIVE); URINE COLOR YELLOW; URINE GLUCOSE (UA) NEGATIVE (NEGATIVE); URINE KETONE 1+ (NEGATIVE); URINE LEUK ESTERASE TRACE (NEGATIVE); URINE NITRITE NEGATIVE (NEGATIVE); URINE PROTEIN TRACE (NEGATIVE); URINE RBC 2 /hpf (0-4); URINE WBC 5 /hpf (0-5)
--- NOTE | 2018-11-28 15:58 | PDOC ---
Documentation entered by Ramona Conti SCRIBE, acting as scribe for Rosalio Goff MD. Rosalio Goff MD: This documentation has been prepared by the altafibeGallito Lincy, SCRIBE, under my direction and personally reviewed by me in its entirety. I confirm that the documentation accurately reflects all work, treatment, procedures, and medical decision making performed by me. Attending Attestation - Resident Resident Name: Caitlyn Marshall - ED Attending Attestation I have performed the following: I have examined & evaluated the patient, The case was reviewed & discussed with the resident, I agree w/resident's findings & plan, Exceptions are as noted - HPI HPI: 11/28/18 15:00 The patient is an 83 year old male with a past medical history significant for alzheimers, bph, Parkinson's disease, BPH and HTN who presents to the emergency department via [facility] ambulance for AMS and hypotension. pt was recently treated for a UTI, was on levaquin, and dc to [facility] and has been in and out of hospitals due to hypotension. family noted today he was a bit more altered so EMS was called. history limited from pt. Allergies: penicillin Social history: No reported history of tobacco, alcohol or recreational drugs. PCP: Dr. Singh. Physical exam: general: no acute distress pulm: cta bl abd: soft nontender card: rrr, no mrg neuro: oving all 4 extremities spontaneously and symmetrically - Physicial Exam PE: 11/28/18 18:16 se above - Medical Decision Making 11/28/18 18:15 labs reviewed noted for leukocytosis LA slightly elevated at 2.7 - wawiating repeat UA non nicole, however pt was recently on abx cxr clear pts was originally hyptenosive - but suspect it was inaccurate as the BP was much larger than warranted for his arm size - bp here is low normal mary alice continue to monitor will admit for further managemnt
[2018-11-28] MEDS ORDERED: VANCOMYCIN 1,000 MG in DEXTROSE 5%-WATER - 250 ML IVPB ONE (16:40)
[2018-11-28] MEDS ORDERED: VANCOMYCIN 1 GRAM (PRE-DOCKED) 1,000 MG/250 ML BAG IVPB ONE (17:09)
[2018-11-28 20:11] LABS: BLOOD UREA NITROGEN 20.3 mg/dL (7-18); CALCIUM 7.7 mg/dL (8.5-10.1); CREATININE 1.4 mg/dL (0.55-1.3)
[2018-11-28 20:12] LABS: POTASSIUM 3.7 mmol/L (3.5-5.1)
[2018-11-28] MEDS ORDERED: LORazepam 1 MG TABLET PO PRN (21:05)
[2018-11-28] MEDS: DEXTROSE 5%-0.45% SALINE 1,000 ML IV SCH (21:44)
[2018-11-29 02:48] VITALS: BMI 25.8
[2018-11-29 08:00] LABS: HEMATOCRIT 36.6 % (35.4-49); HEMOGLOBIN 12.5 GM/dL (11.7-16.9); MCH 31.3 pg (25.7-33.7); MCHC 34.1 g/dl (32.0-35.9); MEAN CELL VOLUME 91.6 fl (80-96); MEAN PLT VOLUME 7.9 fl (7.5-11.1); PLATELET COUNT 185 K/MM3 (134-434); RDW 12.4 % (11.9-15.9); WHITE BLOOD COUNT 11.7 K/mm3 (4.0-10.0)
[2018-11-29 08:16] LABS: BLOOD UREA NITROGEN 18.6 mg/dL (7-18); CALCIUM 7.9 mg/dL (8.5-10.1); CREATININE 1.2 mg/dL (0.55-1.3); POTASSIUM 3.2 mmol/L (3.5-5.1)
[2018-11-29] MEDS: POLYETHYLENE GLYCOL 3350 119 GM BTL PO SCH (10:31)
[2018-11-29] MEDS: DEXTROSE 5%-0.45% SALINE 1,000 ML IV SCH (12:53)
--- NOTE | 2018-11-29 16:30 | HP ---
Admitting History and Physical - Admission History of Present Illness: HPI: 11/28/18 15:00 The patient is an 83 year old male with a PMH significant for alzheimers, bph, Parkinson's disease, HTN who presents to the emergency department via [facility] ambulance for AMS and hypotension. pt was recently admitted at [facility]) for urosepsis. Treated and transfered to [facility] for STR 11/27/18. This am at [place] was found to be altered and hypotensive - he was transferred to ER. Hx obtained from family - no hx of fever or chillls . Patient is unable to provide any hx. patient seen and examined in ER - calm and comfortable - vitals at this time 122 /69 s/p 2 liters IV fluids and 1gm Vanco Allergies: penicillin Social history: No reported history of tobacco, alcohol or recreational drugs. History Source: Family Member, Medical Record Limitations to Obtaining History: Dementia - Past Medical History ICU SPECIALIST: Yes: Alzheimer's, Dementia, Parkinson's Cardiovascular: Yes: HTN. No: CHF, VT Renal/: Yes: BPH - Advance Directives Advance Directives: Yes: Health Care Proxy, DNR, MOLST - Smoking History Smoking history: Never smoked Have you smoked in the past 12 months: No - Alcohol/Substance Use Hx Alcohol Use: No History of Substance Use: reports: None - Social History Usual Living Arrangement: Yes: With Spouse ADL: Family Assistance History of Recent Travel: No Home Medications - Allergies Allergies/Adverse Reactions: Allergies Allergy/AdvReac Type Severity Reaction Status Date / Time Penicillins Allergy Verified 11/02/18 10:29 - Home Medications Home Medications: Ambulatory Orders Acetaminophen [Tylenol .Regular Strength -] 650 mg PO Q4H PRN #120 tablet Cholecalciferol (Vitamin D3) [Vitamin D3] 3,000 unit PO DAILY #30 tablet Folic Acid 1 mg PO DAILY 30 Days #30 tablet 11/05/18 Lisinopril [Prinivil] 20 mg PO DAILY 30 Days #30 tablet 11/05/18 Melatonin [Melatin] 3 mg PO DAILY #30 tablet 11/05/18 Nifedipine [Nifedipine ER] 60 mg PO DAILY 30 Days #30 tab.er.24 11/05/18 Tamsulosin HCl 0.4 mg PO DAILY 30 Days #30 capsule 11/05/18 Bacitracin 5,000,000 unit MC DAILY 11/28/18 Memantine HCl [Memantine HCl ER] 21 mg PO DAILY 11/28/18 levoFLOXacin [Levaquin] 750 mg PO DAILY 11/28/18 Review of Systems Unable to obtain ROS, reason: dementia-ROS from family - Review of Systems Constitutional: reports: Unintentional Wgt. Loss. denies: Chills, Fever, Loss of Appetite Eyes: reports: No Symptoms HENT: reports: No Symptoms Neck: reports: No Symptoms Cardiovascular: reports: No Symptoms Respiratory: reports: No Symptoms Gastrointestinal: reports: No Symptoms Genitourinary: reports: Frequency Musculoskeletal: reports: Decreased ROM Neurological: reports: Confusion, Pre-Existing Deficit, Unsteady Gait, Weakness Endocrine: reports: No Symptoms Physical Examination Vital Signs: Vital Signs Temperature 98.8 F 11/29/18 14:50 Pulse Rate 78 11/29/18 14:50 Respiratory Rate 20 11/29/18 09:00 Blood Pressure 123/71 11/29/18 14:50 O2 Sat by Pulse Oximetry (%) 96 11/29/18 09:00 Constitutional: Yes: Well Nourished, No Distress, Calm, Other (confused but can be directed) Eyes: Yes: Conjunctiva Clear, EOM Intact HENT: Yes: Atraumatic, Normocephalic Neck: Yes: Supple, Trachea Midline Cardiovascular: Yes: Regular Rate and Rhythm Respiratory: Yes: CTA Bilaterally Gastrointestinal: Yes: Normal Bowel Sounds, Soft ...Rectal Exam: Yes: Deferred Renal/: Yes: WNL Breast(s): Yes: WNL Musculoskeletal: Yes: Joint Stiffness Extremities: Yes: WNL Edema: No Peripheral Pulses WNL: Yes Integumentary: Yes: WNL Neurological: Yes: Pre-Existing Deficit, Unsteady Gait Labs: CBC, BMP 11/29/18 07:01 11/29/18 07:01 Problem List - Problems (1) Sepsis Assessment/Plan: elevated LA elevated WBC altered MS compared to baseline hypotensive on admission Plan IV fluids Vanco 1 gm Iv X1 panculture and await c/s resulted trend WBC obtain records from previous hosp stay Problems reviewed: Yes Code(s): A41.9 - SEPSIS, UNSPECIFIED ORGANISM (2) Suspected UTI Assessment/Plan: recent hospital stay for urosepsis possible incomplete treatement repeat urine c/s today one dose Vanco blood c/s cxr Code(s): R39.89 - OTHER SYMPTOMS AND SIGNS INVOLVING THE GENITOURINARY SYSTEM (3) History of UTI Code(s): Z87.440 - PERSONAL HISTORY OF URINARY (TRACT) INFECTIONS (4) Dementia Code(s): F03.90 - UNSPECIFIED DEMENTIA WITHOUT BEHAVIORAL DISTURBANCE Qualifiers: Dementia type: Alzheimer's disease Alzheimer's disease onset: unspecified onset Dementia behavioral disturbance: with behavioral disturbance Qualified Code(s): G30.9 - Alzheimer's disease, unspecified; F02.81 - Dementia in other diseases classified elsewhere with behavioral disturbance (5) HTN (hypertension) Assessment/Plan: hold HTN meds until stable trend vitals adjust meds as needed Code(s): I10 - ESSENTIAL (PRIMARY) HYPERTENSION (6) Parkinson disease Assessment/Plan: will resume sinemet on admission Code(s): G20 - PARKINSON'S DISEASE
--- NOTE | 2018-11-29 16:54 | PN ---
Progress Note (short form) - Note Progress Note: patient seen and examined in room in bed comfortable calm confused Vital Signs Period Temp Pulse Resp BP Sys/Rodríguez Pulse Ox Last 24 Hr 97.9 F-98.8 F 78-93 19-20 110-123/68-75 96-98 neck supple heart s1/S2 lungs clear bilat abd soft non tender ext no edema stiff joints CBC, BMP 11/29/18 07:01 11/29/18 07:01 Microbiology 11/28/18 14:35 Blood - Peripheral Venous Blood Culture - Preliminary NO GROWTH OBTAINED AFTER 24 HOURS, INCUBATION TO CONTINUE FOR 4 DAYS. 11/28/18 14:35 Blood - Peripheral Venous Blood Culture - Preliminary NO GROWTH OBTAINED AFTER 24 HOURS, INCUBATION TO CONTINUE FOR 4 DAYS. Active Medications Dextrose/Sodium Chloride (D5-1/2ns -) 1,000 mls @ 100 mls/hr IV ASDIR [facility] Last Admin: 11/29/18 12:53 Dose: 100 mls/hr Lorazepam (Ativan -) 1 mg PO Q12H PRN PRN Reason: ANXIETY Polyethylene Glycol (Miralax (For Daily Use) -) 17 gm PO DAILY [facility] Last Admin: 11/29/18 10:31 Dose: 17 grams # sepsis hypotension resolved LA back to normal ( 1.3) await c/c urine blood c/s remains negative # Hypokalemia replace lyes ck magnesium levels # HTN continue to hold meds # PD sinemet to be resumed await neuro # Dementia back to baseline Problem List - Problems (1) Sepsis Code(s): A41.9 - SEPSIS, UNSPECIFIED ORGANISM (2) Suspected UTI Code(s): R39.89 - OTHER SYMPTOMS AND SIGNS INVOLVING THE GENITOURINARY SYSTEM (3) History of UTI Code(s): Z87.440 - PERSONAL HISTORY OF URINARY (TRACT) INFECTIONS (4) Dementia Code(s): F03.90 - UNSPECIFIED DEMENTIA WITHOUT BEHAVIORAL DISTURBANCE Qualifiers: Dementia type: Alzheimer's disease Alzheimer's disease onset: unspecified onset Dementia behavioral disturbance: with behavioral disturbance Qualified Code(s): G30.9 - Alzheimer's disease, unspecified; F02.81 - Dementia in other diseases classified elsewhere with behavioral disturbance (5) HTN (hypertension) Code(s): I10 - ESSENTIAL (PRIMARY) HYPERTENSION (6) Parkinson disease Code(s): G20 - PARKINSON'S DISEASE
[2018-11-29] MEDS: POTASSIUM CHLORIDE TABS 20 MEQ TABLET.ER (FP) PO SCH (18:46)
--- NOTE | 2018-11-29 22:03 | EKG ---
Test Reason : Blood Pressure : / mmHG Vent. Rate : 087 BPM Atrial Rate : 087 BPM P-R Int : 172 ms QRS Dur : 160 ms QT Int : 448 ms P-R-T Axes : 026 -22 116 degrees QTc Int : 539 ms POOR DATA QUALITY, INTERPRETATION MAY BE ADVERSELY AFFECTED NORMAL SINUS RHYTHM LEFT BUNDLE BRANCH BLOCK ABNORMAL ECG WHEN COMPARED WITH ECG OF 02-NOV-2018 12:53, QUESTIONABLE CHANGE IN QRS AXIS T WAVE INVERSION NO LONGER EVIDENT IN INFERIOR LEADS Confirmed by Floresita Briggs ([id number]) on 11/29/2018 10:03:24 PM Referred By: Confirmed By:Floresita Briggs
[2018-11-30 08:28] LABS: BASO % 0.3 % (0-2.0); EOS % 3.1 % (0-4.5); HEMATOCRIT 34.1 % (35.4-49); HEMOGLOBIN 11.8 GM/dL (11.7-16.9); MCH 31.4 pg (25.7-33.7); MCHC 34.4 g/dl (32.0-35.9); MEAN CELL VOLUME 91.3 fl (80-96); MEAN PLT VOLUME 7.7 fl (7.5-11.1); MONO % 11.6 % (3.8-10.2); PLATELET COUNT 173 K/MM3 (134-434); RBC 3.74 M/mm3 (4.00-5.60); RDW 12.7 % (11.9-15.9); WHITE BLOOD COUNT 9.1 K/mm3 (4.0-10.0)
[2018-11-30 08:50] LABS: BLOOD UREA NITROGEN 13.2 mg/dL (7-18); CALCIUM 7.6 mg/dL (8.5-10.1); CREATININE 0.9 mg/dL (0.55-1.3); MAGNESIUM 1.4 mg/dL (1.8-2.4); POTASSIUM 3.3 mmol/L (3.5-5.1)
[2018-11-30] MEDS: POTASSIUM CHLORIDE TABS 20 MEQ TABLET.ER (FP) PO SCH (09:47)
[2018-11-30] MEDS: POLYETHYLENE GLYCOL 3350 119 GM BTL PO SCH (09:54)
--- NOTE | 2018-11-30 11:12 | DS ---
Physical Examination Vital Signs: Vital Signs Temperature 98.3 F 11/30/18 08:42 Pulse Rate 84 11/30/18 08:42 Respiratory Rate 20 11/30/18 08:42 Blood Pressure 143/80 11/30/18 08:42 O2 Sat by Pulse Oximetry (%) 96 11/29/18 21:00 Findings/Remarks: HPI: 11/28/18 15:00 The patient is an 83 year old male with a PMH significant for alzheimers, bph, Parkinson's disease, HTN who presents to the emergency department via [facility] ambulance for AMS and hypotension. pt was recently admitted at [facility]) for urosepsis. Treated and transfered to [facility] for STR 11/27/18. This am at [place] was found to be altered and hypotensive - he was transferred to ER. Hx obtained from family - no hx of fever or chillls . Patient is unable to provide any hx. patient seen and examined in ER - calm and comfortable - vitals at that time 122 /69 s/p 2 liters IV fluids and 1gm Vanco Patient has remained with stable vitals and calm demeanor while in hosp. Family notified -all c/s negative and OK for d/c. # sepsis hypotension resolved LA back to normal ( 1.3) c/s urine --negative blood c/s remains negative # Hypokalemia replace lyes --Kdur BID Mag replace prior to d/c # HTN continue to hold meds # PD sinemet to be resumed # Dementia back to baseline Constitutional: Yes: Well Nourished, No Distress, Calm Eyes: Yes: WNL, Conjunctiva Clear, EOM Intact HENT: Yes: WNL, Atraumatic, Normocephalic Neck: Yes: Supple, Trachea Midline Cardiovascular: Yes: Regular Rate and Rhythm Respiratory: Yes: Regular, CTA Bilaterally Gastrointestinal: Yes: Normal Bowel Sounds, Soft ...Rectal Exam: Yes: WNL Renal/: Yes: WNL Breast(s): Yes: WNL Musculoskeletal: Yes: WNL Edema: No Peripheral Pulses WNL: Yes Integumentary: Yes: WNL Neurological: Yes: Pre-Existing Deficit, Unsteady Gait Psychiatric: Yes: Alert Labs: CBC, BMP 11/30/18 07:50 11/30/18 07:50 Discharge Summary Problems reviewed: Yes Reason For Visit: SEPIS Current Active Problems History of UTI (Acute) Sepsis (Acute) Suspected UTI (Acute) Parkinson's Dementia Plan of Treatment: POC will continue to hold HTN meds patient has lost weight over last 6 months so med requirement for Bp control may have decreased. will monitor as out patient and adjust medications appropriately Condition: Stable - Instructions Referrals: Sherry Singh MD [Primary Care Provider] - Disposition: RESIDENTIAL FACILITY - Home Medications Comprehensive Discharge Medication List: Ambulatory Orders Acetaminophen [Tylenol .Regular Strength -] 650 mg PO Q4H PRN #120 tablet Cholecalciferol (Vitamin D3) [Vitamin D3] 3,000 unit PO DAILY #30 tablet Folic Acid 1 mg PO DAILY 30 Days #30 tablet 11/05/18 Melatonin [Melatin] 3 mg PO DAILY #30 tablet 11/05/18 Tamsulosin HCl 0.4 mg PO DAILY 30 Days #30 capsule 11/05/18 Bacitracin 5,000,000 unit MC DAILY 11/28/18 Memantine HCl [Memantine HCl ER] 21 mg PO DAILY 11/28/18
[2018-11-30] MEDS ORDERED: MAGNESIUM SULF 50% (8.12 MEQ/2 ML-1 GM VIAL) IVPB ONE (11:16)
[2018-11-30] MEDS ORDERED: POTASSIUM CHLORIDE TABS 20 MEQ TABLET.ER (FP) PO SCH ×2 (11:30→22:00)
[2018-11-30 14:35] VITALS: BP 124/72; PULSE 71; TEMP 98.1
== END 2018-11-30 15:50 | DRG 871 ==
LOC: JER 13:29 → JERBED 16:41 → J6S 11-29 02:24
PROVIDERS: ADMIT Family Medicine; ATTEND Family Medicine
DX: A41.89 Other specified sepsis (principal); G93.41 Metabolic encephalopathy; N39.0 Urinary tract infection, site not specified; F02.81 Dementia in other diseases classified elsewhere, unspecified severity, with behavioral disturbance; N40.0 Benign prostatic hyperplasia without lower urinary tract symptoms; I10 Essential (primary) hypertension; G30.9 Alzheimer's disease, unspecified; G20 Parkinson's disease; R26.81 Unsteadiness on feet; E87.6 Hypokalemia; I95.9 Hypotension, unspecified; Z87.440 Personal history of urinary (tract) infections
CPT/HCPCS: 36415; 71045-TC-FY; 80048; 80053; 81003; 82803; 83605; 83735; 84443; 84484; 85025; 85027; 85610; 85730; 87040; 87086; 93005; 93010; 97116-GP; 97161-GP; 99285-25; J7030